=== PATIENT | female | born 1960 | race Caucasian/White ===

== ENCOUNTER 2017-10-21 15:42 | Emergency (ER) | payer OTHER ==
[~2017-10-21 15:42] MED LIST: HYDR-3533 PO
[2017-10-21 16:11] VITALS: BP 149/65; PULSE 63; RESP 16; TEMP 98.7; O2SAT 96
--- NOTE | 2017-10-21 16:42 | PD ---
HPI . Tongue injury Chief Complaint: Injury Time Seen by Provider: 16:24 Travel History International Travel<30 days: No Contact w/Intl Traveler<30days: No Traveled to known affect area: No History of Present Illness HPI 57 yo F presents to ER with a 0.5cm laceration to her medial tongue. She was eating lunch about one hour ago when she accidently bit down on it. Since that time it has continued to bleed despite applying pressure. PFSH Past Medical History Diabetes: No Diminished Hearing: No Diverticulitis: Yes Immunizations Current: No Menopausal: Yes Past Surgical History Section: Yes Eye Surgery: Yes (LEFT EYE) Gynecologic Surgery: Yes (C-SECT) Other Surgery: Yes (BENIGN TUMOR REMOVED RT ARM.) Social History Alcohol Use: Yes (OCC) Tobacco Use: No Substance Use: No Allergies-Medications (Allergen,Severity, Reaction): Coded Allergies: No Known Allergies (Unverified Allergy, Unknown, 10/21/17) Reported Meds & Prescriptions Reported Meds & Active Scripts Active No Active Prescriptions or Reported Medications Review of Systems Except as stated in HPI: all other systems reviewed are Neg Physical Exam Narrative General: well developed, well nourished middle aged female, sitting up in bed, in no acute distress Head: atraumatic, normocephalic Eyes: pupils equal and symmetric. No scleral icterus. Nose: atraumatic. No nasal bleeding Oral cavity: 0.5cm laceration on medial tongue. Oral mucosa pink and moist. No other lacerations. Good dentition. No phryngeal erythema Pulmonary: no labored breathing Extremities: able to move all 4 extremities Neuro: no gross deformities Data Data Last Documented VS Vital Signs Date Time Temp Pulse Resp B/P (MAP) Pulse Ox O2 Delivery O2 Flow Rate FiO2 10/21/17 16:11 98.7 63 16 149/65 (93) 96 Orders Orders Tranexamic Acid Inj (Cyklokapron Inj) (10/21/17 17:15) Ed Discharge Order (10/21/17 17:54) [facility] Medical Decision Making Medical Screen Exam Complete: Yes Emergency Medical Condition: Yes Differential Diagnosis tongue laceration, gingivitis, soft palate injury Narrative Course The patient presented with a 0.5cm laceration to the medial tongue which has not stopped bleeding despite pressure for one hour. A tea bag with caffeine was placed on the tongue. The tea bag initially controlled the bleeding but it started back again just a few minutes after the tea bag was removed. TXA was then obtained and a few drops were placed directly onto the wound. This immediately controlled the bleeding. She was observed for about an hour afterward and the bleeding is still controlled. She will be discharged. Diagnosis Primary Impression: Tongue laceration Qualified Codes: S01.512A - Laceration without foreign body of oral cavity, initial encounter Scripts No Active Prescriptions or Reported Meds Disposition: 01 DISCHARGE HOME Condition: Stable Jazmyn Hardy MD Oct 21, 2017 16:42
[2017-10-21] MEDS ORDERED: TRANEXAMIC ACID INJ 1,000 MG in SODIUM CHLORIDE 0.9% INJ 100 ML IV ONE (17:15)
== END 2017-10-21 18:05 | disposition home or self-care (01) ==
LOC: PHEFT 15:42
DX: S01.512A Laceration without foreign body of oral cavity, initial encounter (principal); X58.XXXA Exposure to other specified factors, initial encounter; Y93.89 Activity, other specified
CPT/HCPCS: 99282